=== PATIENT | male | born 1955 | race Caucasian/White ===

== ENCOUNTER 2018-02-27 14:56 | Outpatient (CLI) | payer MEDICARE ==
--- NOTE | 2018-02-27 15:43 | RAD ---
SKULL SERIES 4 VIEWS: HISTORY: Injury to head. FINDINGS: No evidence of skull fracture identified. No osseous abnormality. IMPRESSION: No evidence of skull fracture. POS: [facility]
--- NOTE | 2018-02-27 15:47 | RAD ---
LEFT HAND 3 VIEWS: HISTORY: Injury with pain. FINDINGS: Degenerative changes are seen involving the 1st, 2nd, and 3rd MCP joints with joint narrowing and deg enerative spurring. No fracture, dislocation, or other acute process. IMPRESSION: No acute fracture identified. POS: [facility]
--- NOTE | 2018-02-27 15:49 | RAD ---
CERVICAL SPINE: HISTORY: Injury to neck. FINDINGS: Postop changes are noted with anterior fusion procedure transfixing C5-6. Anterior plate and screws at this level with interbody implant and partial fusion. Degenerative changes are noted with anterior osteophytes at C3 and C4. Disk narrowing at C6-7 with d egenerative spurring. No evidence of acute compression or fracture. Findings are stable when compar ed to a prior cervical spine exam of 2014. On an AP view, there is evidence of a fracture involving the posterolateral right 4th rib. This appe ars to be old but is only viewed in the single projection. IMPRESSION: 1. Postop and degenerative changes of cervical spine without evidence of acute cervical spine fractu re. 2. Evidence of an old right 4th rib fracture. POS: [facility]
== END 2018-02-27 14:57 | disposition home or self-care (01) ==
LOC: SCSRAD 14:56
PROVIDERS: ATTEND Family Medicine
DX: S09.90XA Unspecified injury of head, initial encounter (principal); M47.892 Other spondylosis, cervical region; Z98.890 Other specified postprocedural states; Z87.81 Personal history of (healed) traumatic fracture
CPT/HCPCS: 70260; 72040

== ENCOUNTER 2018-03-08 17:32 | Emergency (ER) | payer MEDICARE ==
[2018-03-08] MEDS ORDERED: diphenhydrAMINE 50 MG/ML VIAL ONE (18:10)
[2018-03-08] MEDS ORDERED: Metoclopramide HCl 10 MG/2 ML VIAL ONE (18:10)
[2018-03-08 18:23] LABS: #Eosinphils 0.2 thou/uL (0.0-0.7); #Lymphocytes 1.6 thou/uL (1.20-3.40); #Monocytes 0.5 thou/uL (0.11-0.59); #Neutrophils 3.5 thou/uL (1.40-6.50); %Basophils 0.5 % (0.0-1.0); %Eosinophils 3.7 % (0.0-10.0); %Lymphocytes 27.4 % (21.0-51.0); %Monocytes 8.3 % (0.0-10.0); %Neutrophils 60.1 % (42.0-75.0); Hemoglobin 14.6 g/dL (14.0-18.0); Mean Corpuscular HGB CONC 34.4 g/dL (32.0-36.0); Mean Corpuscular Hemoglobin 31.7 pg (27.0-31.0); Mean Corpuscular Volume 92.2 fL (78.0-98.0); Mean Platelet Volume 8.5 fL (7.4-10.4); Platelet Count 172 thou/uL (130-400); RBC Distribution Width 11.5 % (11.5-14.5); Red Blood Cell (RBC) Count 4.61 mill/uL (4.70-6.10); White Blood Cell (WBC) Count 5.8 thou/uL (4.8-10.8)
--- NOTE | 2018-03-08 18:38 | CT ---
CT OF THE BRAIN WITHOUT CONTRAST: Date: 03/08/18 COMPARISON: 04/02/10. HISTORY: Pinned between two cows and a pen. Headache. TECHNIQUE: Multiple contiguous axial images were obtained in a CT of the brain without contrast. FINDINGS: The brain is normal in morphology and attenuation without focal lesions or confluent areas of infarct ion. There is no evidence of hydrocephalus, intracranial hemorrhage, or extra-axial fluid collection. The calvarium and overlying soft tissues are unremarkable. The visualized paranasal sinuses and masto id air cells are well aerated. IMPRESSION: No evidence of acute intracranial abnormality. POS: [facility]
[2018-03-08 18:43] LABS: ALT (SGPT) 16 U/L (8-55); AST (SGOT) 18 U/L (5-34); Albumin 4.2 g/dL (3.4-4.8); Alkaline Phosphatase 66 U/L (40-150); Anion Gap 13 mmol/L (10-20); BUN (Urea Nitrogen) 19 mg/dL (8.4-25.7); Bilirubin, Total 0.5 mg/dL (0.2-1.2); Calc. Creatinine Clearance 0 mL/min (70-130); Calcium 9.1 mg/dL (7.8-10.44); Carbon Dioxide 21 mmol/L (23-31); Chloride 105 mmol/L (98-107); Estimated GFR-MDRD 67; Globulin 3.2 g/dL (2.4-3.5); Glucose 124 mg/dL (80-115); Magnesium 2.6 mg/dL (1.6-2.6); Potassium 4.2 mmol/L (3.5-5.1); Protein, Total 7.4 g/dL (5.8-8.1); Sodium 135 mmol/L (136-145)
[2018-03-08 18:46] LABS: Troponin I Less than 0.010 ng/mL (< 0.028)
== END 2018-03-08 19:52 | disposition home or self-care (01) ==
LOC: ERS 17:32
DX: S06.0X0A Concussion without loss of consciousness, initial encounter (principal); I25.10 Atherosclerotic heart disease of native coronary artery without angina pectoris; E78.5 Hyperlipidemia, unspecified; E78.1 Pure hyperglyceridemia; J45.909 Unspecified asthma, uncomplicated; F41.9 Anxiety disorder, unspecified; F32.9 Major depressive disorder, single episode, unspecified; I11.0 Hypertensive heart disease with heart failure; I50.9 Heart failure, unspecified; Z79.899 Other long term (current) drug therapy; Z79.82 Long term (current) use of aspirin; W55.22XA Struck by cow, initial encounter
CPT/HCPCS: 70450; 80053; 82553; 83735; 84484; 85025; 96361; 96374; 96375; J1200; J2765

== ENCOUNTER 2021-01-08 15:59 | Observation (INO) | payer MEDICARE ==
[2021-01-08] MEDS ORDERED: Fentanyl 100 MCG/2 ML VIAL ONE (16:22)
[2021-01-08 16:23] LABS: #Eosinphils 0.2 thou/uL (0.0-0.7); #Lymphocytes 1.2 thou/uL (1.20-3.40); #Monocytes 0.6 thou/uL (0.11-0.59); #Neutrophils 4.1 thou/uL (1.40-6.50); %Basophils 0.7 % (0.0-1.0); %Eosinophils 2.6 % (0.0-10.0); %Lymphocytes 19.6 % (21.0-51.0); %Monocytes 10.1 % (0.0-10.0); Hemoglobin 12.9 g/dL (14.0-18.0); Mean Corpuscular Hemoglobin 31.6 pg (27.0-31.0); Mean Corpuscular Volume 93.1 fL (78.0-98.0); Mean Platelet Volume 8.5 fL (7.4-10.4); Platelet Count 145 thou/uL (130-400); RBC Distribution Width 11.8 % (11.5-14.5); Red Blood Cell (RBC) Count 4.07 mill/uL (4.70-6.10)
[2021-01-08 16:49] LABS: ALT (SGPT) 11 U/L (8-55); AST (SGOT) 11 U/L (5-34); Albumin 3.6 g/dL (3.4-4.8); Alkaline Phosphatase 64 U/L (40-110); Anion Gap 13 mmol/L (10-20); BUN (Urea Nitrogen) 19 mg/dL (8.4-25.7); Bilirubin, Total 0.4 mg/dL (0.2-1.2); Calc. Creatinine Clearance 0 mL/min (70-130); Calcium 8.6 mg/dL (7.8-10.44); Carbon Dioxide 25 mmol/L (23-31); Chloride 104 mmol/L (98-107); Globulin 2.8 g/dL (2.4-3.5); Glucose 104 mg/dL (80-115); Potassium 4.3 mmol/L (3.5-5.1); Protein, Total 6.4 g/dL (5.8-8.1); Sodium 138 mmol/L (136-145)
[2021-01-08] MEDS ORDERED: Nitroglycerin 0.4 MG TAB (25 Tab Bottle) SL PRN (19:31)
[2021-01-08] MEDS ORDERED: Ondansetron PF 4 MG/2 ML Vial IVP PRN (19:31)
[2021-01-08] MEDS ORDERED: Morphine 2 MG/ML VIAL SLOW IVP PRN ×2 (19:48→22:58)
[2021-01-08 19:53] LABS: Troponin I Less than 0.010 ng/mL (< 0.028)
[2021-01-08] MEDS ORDERED: Aspirin Chewable 81 MG TAB PO SCH (20:00)
[2021-01-08] MEDS: Heparin 5,000 UNITS/ML VIAL SC SCH (21:20)
[2021-01-08] MEDS: Nicotine 21 MG PATCH TD SCH (21:20)
[2021-01-08 23:31] LABS: Troponin I Less than 0.010 ng/mL (< 0.028)
[2021-01-08] MEDS: Acetaminophen 325 MG TAB PO PRN (23:31)
[2021-01-09 01:34] LABS: SARS-CoV-2 PCR by NAA Not Detected (NotDetected)
[2021-01-09 04:20] LABS: #Eosinphils 0.2 thou/uL (0.0-0.7); #Lymphocytes 1.2 thou/uL (1.20-3.40); #Monocytes 0.7 thou/uL (0.11-0.59); #Neutrophils 3.8 thou/uL (1.40-6.50); %Basophils 0.3 % (0.0-1.0); %Eosinophils 2.8 % (0.0-10.0); %Lymphocytes 20.4 % (21.0-51.0); %Monocytes 11.3 % (0.0-10.0); %Neutrophils 65.3 % (42.0-75.0); Hemoglobin 12.3 g/dL (14.0-18.0); Mean Corpuscular HGB CONC 33.8 g/dL (32.0-36.0); Mean Corpuscular Hemoglobin 31.4 pg (27.0-31.0); Mean Corpuscular Volume 92.9 fL (78.0-98.0); Mean Platelet Volume 8.7 fL (7.4-10.4); Platelet Count 145 thou/uL (130-400); RBC Distribution Width 11.7 % (11.5-14.5); Red Blood Cell (RBC) Count 3.93 mill/uL (4.70-6.10); White Blood Cell (WBC) Count 5.8 thou/uL (4.8-10.8)
[2021-01-09 04:40] LABS: Anion Gap 13 mmol/L (10-20); BUN (Urea Nitrogen) 22 mg/dL (8.4-25.7); Calc. Creatinine Clearance 68 mL/min (70-130); Calcium 8.8 mg/dL (7.8-10.44); Carbon Dioxide 24 mmol/L (23-31); Cardiac Risk 4.3 (Less than 4.5); Chloride 106 mmol/L (98-107); Cholesterol 175 mg/dl (< 200 Desired); Glucose 97 mg/dL (80-115); HDL Cholesterol 41 mg/dL (>60 Neg Risk); LDL Cholesterol, Calculated 87 mg/dL; Sodium 139 mmol/L (136-145); Triglycerides 237 mg/dL (Less than 150)
[2021-01-09 04:49] LABS: Hemoglobin A1c 5.7 % (4.0-6.0)
[2021-01-09] MEDS ORDERED: Regadenoson 0.4 MG/5 ML SYRINGE ONE (08:47)
[2021-01-09] MEDS ORDERED: Aspirin Chewable 81 MG TAB PO SCH (09:00)
[2021-01-09] MEDS: Heparin 5,000 UNITS/ML VIAL SC SCH ×2 (10:57→16:15)
[2021-01-09] MEDS: Acetaminophen 325 MG TAB PO PRN (13:20)
[2021-01-09 15:51] LABS: Bacteria/HPF None Seen HPF (None Seen); Bilirubin Negative (Negative); Blood, Urine Negative (Negative); Clarity Clear (Clear); Glucose, Urine (Dipstick) Normal (Negative); Ketone, Urine Negative (Negative); Leukocyte Negative Leu/uL (Negative); Nitrite Negative (Negative); Protein, Urine (Dipstick) Negative (Neg-Trace); RBC/HPF 0-3 HPF (0-3); Specific Gravity, Urine 1.011 (1.002-1.036); Squamous Epithelial None Seen HPF (0-3); Urobilinogen Normal mg/dL (Less than 2); WBC/HPF None Seen HPF (0-3)
[2021-01-09] MEDS ORDERED: Nitroglycerin 0.4 MG TAB (25 Tab Bottle) SL PRN (17:38)
[2021-01-09] MEDS ORDERED: Gabapentin 300 MG CAP PO PRN (17:38)
[2021-01-09] MEDS ORDERED: Non-Formulary Item 1 EACH (Prednisone [Prednisone] 10 MG Tablet) PO PRN (17:38)
[2021-01-09] MEDS ORDERED: metroNIDAZOLE 500 MG in Premix Bag 1 BAG IVPB SCH (18:30)
[2021-01-09] MEDS ORDERED: Carvedilol 25 MG TAB PO SCH (20:00)
[2021-01-09] MEDS ORDERED: Icosapent Ethyl 1 GM CAPSULE PO SCH (20:00)
[2021-01-09] MEDS: HYDROcodone/Acetaminophen 5/325 mg Tablet PO SCH (20:16)
[2021-01-09] MEDS: ceFAZolin 1 GM/D5W 1 GM in Premix Bag 1 BAG IVPB SCH (20:16)
[2021-01-09] MEDS: Apixaban 2.5 MG TAB PO SCH (20:17)
[2021-01-09] MEDS: Nicotine 21 MG PATCH TD SCH ×2 (20:17→20:20)
[2021-01-09] MEDS ORDERED: Lisinopril 20 MG TAB PO SCH (21:00)
[2021-01-09] MEDS ORDERED: TICAGRELOR 90 MG TABLET PO SCH (21:00)
[2021-01-09] MEDS ORDERED: CEFAZOLIN 1 GM in Sodium Chloride 0.9% 100 ML IVPB SCH (22:00)
[2021-01-10] MEDS: metroNIDAZOLE 500 MG in Premix Bag 1 BAG IVPB SCH ×2 (02:03→11:06)
[2021-01-10] MEDS: ceFAZolin 1 GM/D5W 1 GM in Premix Bag 1 BAG IVPB SCH ×2 (02:58→12:49)
[2021-01-10] MEDS ORDERED: Carvedilol 25 MG TAB PO SCH (08:00)
[2021-01-10] MEDS ORDERED: Icosapent Ethyl 1 GM CAPSULE PO SCH (08:00)
[2021-01-10] MEDS: Apixaban 2.5 MG TAB PO SCH (08:38)
[2021-01-10] MEDS: HYDROcodone/Acetaminophen 5/325 mg Tablet PO SCH (08:40)
[2021-01-10] MEDS ORDERED: Aspirin 81 mg Enteric Coated Tablet PO SCH (09:00)
[2021-01-10] MEDS ORDERED: Ezetimibe 10 MG TAB PO SCH (09:00)
[2021-01-10] MEDS ORDERED: Enoxaparin Sodium 40 MG/0.4 ML SYRINGE SC SCH (09:00)
[2021-01-10] MEDS ORDERED: LISDEXAMFETAMINE DIMESYLATE 60 MG PO SCH (09:00)
[2021-01-10] MEDS ORDERED: Lisinopril 20 MG TAB PO SCH (09:00)
[2021-01-10] MEDS ORDERED: Torsemide 10 MG TAB PO SCH (09:00)
[2021-01-10] MEDS ORDERED: (Vortioxetine Hydrobromide [Trintellix] 20 MG Tablet) PO SCH (09:00)
[2021-01-10 11:33] LABS: Hemoglobin 13.1 g/dL (14.0-18.0); Platelet Count 161 thou/uL (130-400)
[2021-01-10 17:05] VITALS: BP 116/62; TEMP 97
== END 2021-01-10 16:50 | disposition home or self-care (01) ==
LOC: ERS 15:59 → ERHOLD 19:07 → 2NO 22:13
PROVIDERS: ADMIT Family Medicine; ATTEND Internal Medicine
DX: R07.9 Chest pain, unspecified (principal); I25.2 Old myocardial infarction; K50.90 Crohn's disease, unspecified, without complications; I25.10 Atherosclerotic heart disease of native coronary artery without angina pectoris; I11.0 Hypertensive heart disease with heart failure; I50.22 Chronic systolic (congestive) heart failure; E78.5 Hyperlipidemia, unspecified; J45.20 Mild intermittent asthma, uncomplicated; F17.210 Nicotine dependence, cigarettes, uncomplicated; K57.32 Diverticulitis of large intestine without perforation or abscess without bleeding; Z79.02 Long term (current) use of antithrombotics/antiplatelets; Z79.82 Long term (current) use of aspirin; Z79.899 Other long term (current) drug therapy; Z88.5 Allergy status to narcotic agent; Z95.1 Presence of aortocoronary bypass graft; Z95.5 Presence of coronary angioplasty implant and graft; Z20.822 Contact with and (suspected) exposure to COVID-19
CPT/HCPCS: 71045; 74176; 78452; 80048; 80053; 80061; 81001; 82565; 83036; 83880; 84484 ×2; 85014; 85018; 85025 ×2; 85049; 85379; 93005; 93017; 93306; 94760; 96372 ×2; 96374 ×2; 96375; 96376; 99285; A9500; G0378 ×4; U0003; U0005; 36415; 87635; J0690; J1644; J2785; J3010

== ENCOUNTER 2021-09-20 10:58 | Outpatient (CLI) | payer MEDICARE | END 2021-09-20 10:59 | disposition home or self-care (01) | LOC: BICRAD 10:58 | PROVIDERS: ATTEND Specialist | DX: M47.812 Spondylosis without myelopathy or radiculopathy, cervical region (principal); M43.12 Spondylolisthesis, cervical region; Z98.1 Arthrodesis status; Z98.890 Other specified postprocedural states | CPT/HCPCS: 72050 ==

== ENCOUNTER 2022-02-14 11:40 | Inpatient (IN) | payer MEDICARE ==
[2022-02-14 12:10] LABS: #Basophils 0.1 thou/uL (0.0-0.2); #Eosinphils 0.4 thou/uL (0.0-0.7); #Monocytes 0.4 thou/uL (0.11-0.59); #Neutrophils 5.9 thou/uL (1.40-6.50); %Basophils 0.7 % (0.0-1.0); %Eosinophils 4.5 % (0.0-10.0); %Lymphocytes 13.2 % (21.0-51.0); %Monocytes 5.6 % (0.0-10.0); Mean Corpuscular HGB CONC 33.6 g/dL (32.0-36.0); Mean Corpuscular Hemoglobin 31.8 pg (27.0-31.0); Mean Corpuscular Volume 94.8 fL (78.0-98.0); Platelet Count 176 thou/uL (130-400); RBC Distribution Width 11.2 % (11.5-14.5); White Blood Cell (WBC) Count 7.7 thou/uL (4.8-10.8)
[2022-02-14] MEDS ORDERED: Morphine 10 MG/ML VIAL ONE (12:10)
[2022-02-14] MEDS ORDERED: Iopamidol-M 300 61% 15 ML VIAL ONE (12:12)
[2022-02-14 12:22] LABS: PTT 31.4 sec (22.9-36.1); Prothrombin Time 12.9 sec (12.0-14.7)
[2022-02-14 12:31] LABS: ALT (SGPT) 11 U/L (8-55); AST (SGOT) 16 U/L (5-34); Albumin 3.9 g/dL (3.4-4.8); Alkaline Phosphatase 74 U/L (40-110); Anion Gap 11 mmol/L (10-20); BUN (Urea Nitrogen) 18 mg/dL (8.4-25.7); Bilirubin, Total 0.5 mg/dL (0.2-1.2); Calc. Creatinine Clearance 0 mL/min (70-130); Carbon Dioxide 24 mmol/L (23-31); Chloride 106 mmol/L (98-107); Globulin 2.8 g/dL (2.4-3.5); Glucose 112 mg/dL (80-115); Potassium 4.2 mmol/L (3.5-5.1); Protein, Total 6.7 g/dL (5.8-8.1); Sodium 137 mmol/L (136-145)
[2022-02-14] MEDS ORDERED: fentaNYL Citrate/PF 100 MCG/2 ML SYRINGE ONE (13:09)
[2022-02-14] MEDS ORDERED: Neomycin-Polymyxin 1 ML AMP ONE (13:22)
[2022-02-14] MEDS ORDERED: Bacitracin Zinc Ointment 30 gm TUBE ONE (13:22)
[2022-02-14] MEDS ORDERED: Thrombin 5000 UNITS/5 ML VIAL ONE (13:22)
[2022-02-14] MEDS ORDERED: Bupivacaine PF 0.5% 30 ML VIAL ONE (13:25)
[2022-02-14] MEDS ORDERED: EPINEPHrine 1 MG/ML AMP ONE (13:25)
[2022-02-14] MEDS ORDERED: Midazolam HCl 2 mg/2 ml Vial ONE (15:07)
[2022-02-14] MEDS ORDERED: HYDROmorphone 2 MG/ML VIAL ONE (15:07)
[2022-02-14] MEDS ORDERED: ePHEDrine Sulfate 50 MG/10 ML VIAL ONE (15:08)
[2022-02-14] MEDS ORDERED: SUGAMMADEX SODIUM 200 MG/2 ML VIAL ONE (15:08)
[2022-02-14] MEDS ORDERED: PHENYLEPHRINE-NS 100 MCG/ML 10 ML SYRINGE ONE ×5 (15:08→19:52)
[2022-02-14] MEDS ORDERED: Rocuronium Bromide 50 MG/5 ML VIAL ONE (15:08)
[2022-02-14 15:09] LABS: SARS-CoV-2 NAA Rapid Test Not Detected (NotDetected)
[2022-02-14] MEDS ORDERED: Pantoprazole 40 MG VIAL ONE (15:09)
[2022-02-14] MEDS ORDERED: Famotidine/PF 20 mg/2ml Vial ONE (15:09)
[2022-02-14] MEDS ORDERED: Metoclopramide HCl 10 MG/2 ML VIAL ONE (15:35)
[2022-02-14] MEDS ORDERED: Dexamethasone 20 MG/5 ML VIAL ONE (15:35)
[2022-02-14] MEDS ORDERED: diphenhydrAMINE 50 MG/ML VIAL ONE (15:35)
[2022-02-14] MEDS ORDERED: Ondansetron PF 4 MG/2 ML Vial ONE (15:35)
[2022-02-14] MEDS ORDERED: Rocuronium Bromide 10 MG/ML (10ML VIAL) ONE (15:35)
[2022-02-14] MEDS ORDERED: PROPOFOL 200 MG/20 ML VIAL ONE (15:35)
[2022-02-14] MEDS ORDERED: Lidocaine 1% PF 5 ML VIAL ONE (15:35)
[2022-02-14] MEDS ORDERED: ePHEDrine 50 MG/ML VIAL ONE (15:35)
[2022-02-14] MEDS ORDERED: Phenylephrine 10 MG/ML VIAL ONE (16:51)
[2022-02-14] MEDS ORDERED: Promethazine HCl 25 MG/ML VIAL IM PRN (19:36)
[2022-02-14] MEDS ORDERED: Ondansetron HCl/PF 4 MG/2 ML Vial IVP PRN (19:36)
[2022-02-14] MEDS ORDERED: Promethazine HCl 25 MG/ML VIAL IVPB PRN (19:36)
[2022-02-14] MEDS ORDERED: Norepinephrine 8 MG/0.9% NS 250 ML IVPB SCH (19:49)
[2022-02-14] MEDS: Sodium Chloride 0.9% 1,000 ML IV SCH (19:50)
[2022-02-14] MEDS ORDERED: Prochlorperazine 10 MG/2 ML VIAL IM PRN (19:51)
[2022-02-14] MEDS ORDERED: Acetaminophen/Codeine 30-300mg Tablet PO PRN (19:51)
[2022-02-14] MEDS ORDERED: diphenhydrAMINE 50 MG/ML VIAL IVP PRN (19:51)
[2022-02-14] MEDS ORDERED: Mag-Al 1200 mg/1200 mg/30 ML UDCUP PO PRN (19:51)
[2022-02-14] MEDS ORDERED: Ondansetron PF 4 MG/2 ML Vial IVP PRN (19:51)
[2022-02-14] MEDS ORDERED: Bisacodyl 10 MG SUPP PR PRN (19:51)
[2022-02-14] MEDS ORDERED: Acetaminophen 325 MG TAB PO PRN (19:51)
[2022-02-14] MEDS ORDERED: Norepinephrine 8 MG/0.9% NS 0 ML ONE (19:51)
[2022-02-14] MEDS ORDERED: Milk Of Magnesia 30 ML UDCUP PO PRN (19:51)
[2022-02-14] MEDS ORDERED: Norepinephrine 8 MG/0.9% NS 250 ML ONE (19:52)
[2022-02-14] MEDS ORDERED: hydrALAZINE 20 MG/ML VIAL SLOW IVP PRN (19:54)
[2022-02-14] MEDS ORDERED: Fentanyl 100 MCG/2 ML VIAL ONE (20:43)
[2022-02-14] MEDS: Fentanyl 100 MCG/2 ML VIAL SLOW IVP PRN (22:11)
[2022-02-14] MEDS: CEFAZOLIN 2 GM in Sodium Chloride 0.9% 100 ML IVPB SCH (23:09)
[2022-02-15] MEDS: HYDROcodone/Acetaminophen 7.5/325 mg Tablet PO PRN ×2 (04:09→13:31)
[2022-02-15] MEDS: CEFAZOLIN 2 GM in Sodium Chloride 0.9% 100 ML IVPB SCH ×3 (04:10→20:04)
[2022-02-15 05:04] VITALS: BMI 23.3
[2022-02-15] MEDS: Sodium Chloride 0.9% 1,000 ML IV SCH ×2 (09:17→13:49)
[2022-02-15] MEDS: HYDROcodone/Acetaminophen 10/325 mg Tablet PO PRN ×2 (09:18→17:26)
[2022-02-15 09:53] LABS: EPI 122 sec (67-192)
[2022-02-15 09:54] LABS: Platelet Count 185 thou/uL (130-400)
[2022-02-15 09:55] LABS: ADP 89 sec (39-127); ADP Status Message No Message
[2022-02-15] MEDS: Cyclobenzaprine 10 MG TAB PO PRN (11:33)
[2022-02-15] MEDS: Fentanyl 100 MCG/2 ML VIAL SLOW IVP PRN ×2 (13:54→17:37)
[2022-02-16] MEDS: Fentanyl 100 MCG/2 ML VIAL SLOW IVP PRN (02:36)
[2022-02-16] MEDS: CEFAZOLIN 2 GM in Sodium Chloride 0.9% 100 ML IVPB SCH ×3 (04:28→20:17)
[2022-02-16] MEDS: Sodium Chloride 0.9% 1,000 ML IV SCH ×3 (05:31→21:41)
[2022-02-16 11:31] LABS: #Basophils 0.1 thou/uL (0.0-0.2); #Eosinphils 0.1 thou/uL (0.0-0.7); #Lymphocytes 1.2 thou/uL (1.20-3.40); #Monocytes 0.8 thou/uL (0.11-0.59); #Neutrophils 9.1 thou/uL (1.40-6.50); %Basophils 0.5 % (0.0-1.0); %Eosinophils 0.5 % (0.0-10.0); %Lymphocytes 10.8 % (21.0-51.0); %Monocytes 7.3 % (0.0-10.0); %Neutrophils 81.1 % (42.0-75.0); Hemoglobin 11.9 g/dL (14.0-18.0); Mean Corpuscular HGB CONC 33.6 g/dL (32.0-36.0); Mean Corpuscular Hemoglobin 32.3 pg (27.0-31.0); Mean Platelet Volume 8.5 fL (7.4-10.4); Platelet Count 167 thou/uL (130-400); RBC Distribution Width 11.4 % (11.5-14.5); Red Blood Cell (RBC) Count 3.69 mill/uL (4.70-6.10); White Blood Cell (WBC) Count 11.2 thou/uL (4.8-10.8)
[2022-02-16 11:47] LABS: Anion Gap 12 mmol/L (10-20); BUN (Urea Nitrogen) 16 mg/dL (8.4-25.7); Calc. Creatinine Clearance 74 mL/min (70-130); Calcium 8.8 mg/dL (7.8-10.44); Carbon Dioxide 27 mmol/L (23-31); Chloride 105 mmol/L (98-107); Glucose 113 mg/dL (80-115); Potassium 3.8 mmol/L (3.5-5.1); Sodium 140 mmol/L (136-145)
[2022-02-16] MEDS: HYDROcodone/Acetaminophen 10/325 mg Tablet PO PRN ×2 (16:44→20:13)
[2022-02-16] MEDS: Cyclobenzaprine 10 MG TAB PO PRN (20:13)
[2022-02-17] MEDS: CEFAZOLIN 2 GM in Sodium Chloride 0.9% 100 ML IVPB SCH ×3 (03:37→20:28)
[2022-02-17] MEDS: HYDROcodone/Acetaminophen 10/325 mg Tablet PO PRN ×4 (05:46→20:28)
[2022-02-17] MEDS: Cyclobenzaprine 10 MG TAB PO PRN (20:32)
[2022-02-17] MEDS: Sodium Chloride 0.9% 1,000 ML IV SCH ×2 (20:45→20:46)
[2022-02-18] MEDS: CEFAZOLIN 2 GM in Sodium Chloride 0.9% 100 ML IVPB SCH ×2 (03:37→12:12)
[2022-02-18] MEDS: Sodium Chloride 0.9% 1,000 ML IV SCH (03:38)
[2022-02-18 06:35] LABS: #Eosinphils 0.4 thou/uL (0.0-0.7); #Lymphocytes 1.9 thou/uL (1.20-3.40); #Monocytes 0.9 thou/uL (0.11-0.59); #Neutrophils 4.7 thou/uL (1.40-6.50); %Basophils 0.3 % (0.0-1.0); %Eosinophils 4.5 % (0.0-10.0); %Lymphocytes 24.2 % (21.0-51.0); %Monocytes 11.7 % (0.0-10.0); %Neutrophils 59.3 % (42.0-75.0); Hemoglobin 11.7 g/dL (14.0-18.0); Mean Corpuscular HGB CONC 33.5 g/dL (32.0-36.0); Mean Corpuscular Hemoglobin 32.2 pg (27.0-31.0); Mean Corpuscular Volume 96.1 fL (78.0-98.0); Mean Platelet Volume 8.6 fL (7.4-10.4); Platelet Count 164 thou/uL (130-400); RBC Distribution Width 11.4 % (11.5-14.5); Red Blood Cell (RBC) Count 3.63 mill/uL (4.70-6.10)
[2022-02-18 06:42] LABS: Anion Gap 12 mmol/L (10-20); BUN (Urea Nitrogen) 19 mg/dL (8.4-25.7); Calc. Creatinine Clearance 75 mL/min (70-130); Calcium 9.1 mg/dL (7.8-10.44); Carbon Dioxide 26 mmol/L (23-31); Chloride 105 mmol/L (98-107); Glucose 106 mg/dL (80-115); Potassium 4.1 mmol/L (3.5-5.1); Sodium 139 mmol/L (136-145)
[2022-02-18] MEDS: HYDROcodone/Acetaminophen 10/325 mg Tablet PO PRN (08:23)
[2022-02-18 11:51] VITALS: TEMP 97.8
[2022-02-18 13:21] VITALS: BP 133/80
== END 2022-02-18 16:10 | disposition home health service (06) | DRG 907 ==
LOC: ERS 11:40 → SDC 15:26 → CCU 19:50 → T4-B 02-15 10:33
PROVIDERS: ADMIT Neurological Surgery; ATTEND Internal Medicine
PROC: 01N10ZZ Release Cervical Nerve, Open Approach (ICD-10-PCS; principal; 2022-02-14)
PROC: 01N80ZZ Release Thoracic Nerve, Open Approach (ICD-10-PCS; 2022-02-14)
PROC: 3E033XZ Introduction of Vasopressor into Peripheral Vein, Percutaneous Approach (ICD-10-PCS; 2022-02-14)
DX: G97.61 Postprocedural hematoma of a nervous system organ or structure following a nervous system procedure (principal); R57.8 Other shock; G81.94 Hemiplegia, unspecified affecting left nondominant side; K50.90 Crohn's disease, unspecified, without complications; T80.89XA Other complications following infusion, transfusion and therapeutic injection, initial encounter; Z20.822 Contact with and (suspected) exposure to COVID-19; I25.10 Atherosclerotic heart disease of native coronary artery without angina pectoris; E78.5 Hyperlipidemia, unspecified; E78.00 Pure hypercholesterolemia, unspecified; E78.1 Pure hyperglyceridemia; I11.0 Hypertensive heart disease with heart failure; F41.9 Anxiety disorder, unspecified; F32.A Depression, unspecified; F17.210 Nicotine dependence, cigarettes, uncomplicated; Y84.8 Other medical procedures as the cause of abnormal reaction of the patient, or of later complication, without mention of misadventure at the time of the procedure; I50.9 Heart failure, unspecified; F98.8 Other specified behavioral and emotional disorders with onset usually occurring in childhood and adolescence; N52.9 Male erectile dysfunction, unspecified; I25.2 Old myocardial infarction; Z95.0 Presence of cardiac pacemaker; Z95.5 Presence of coronary angioplasty implant and graft; Z79.82 Long term (current) use of aspirin; Z79.899 Other long term (current) drug therapy; Z88.5 Allergy status to narcotic agent
CPT/HCPCS: 36415; 62305; 70450; 70496; 70498; 72126; 72129; 76000; 80048; 80053; 83880; 84484; 85025; 85576; 85610; 85730; 93005; 93970; 94760; 96374; C9113; J0171; J0690; J1100; J1170; J1200; J2250; J2270; J2370; J2405; J2704; J2765; J3010; J3370; J3490; J7050; Q9967; S0020; S0028; U0002; U0003; U0005

== ENCOUNTER 2022-08-27 06:14 | Day surgery (SDC) | payer MEDICARE ==
[2022-08-23 09:41] VITALS: BMI 21.7
[2022-08-27 07:54] LABS: #Eosinphils 0.1 thou/uL (0.0-0.7); #Lymphocytes 1.2 thou/uL (1.20-3.40); #Monocytes 0.5 thou/uL (0.11-0.59); #Neutrophils 3.3 thou/uL (1.40-6.50); %Basophils 0.7 % (0.0-1.0); %Eosinophils 2.4 % (0.0-10.0); %Lymphocytes 22.9 % (21.0-51.0); %Monocytes 10.4 % (0.0-10.0); %Neutrophils 63.7 % (42.0-75.0); Hemoglobin 13.7 g/dL (14.0-18.0); Mean Corpuscular HGB CONC 33.9 g/dL (32.0-36.0); Mean Corpuscular Hemoglobin 31.8 pg (27.0-31.0); Mean Corpuscular Volume 93.7 fl (78.0-98.0); Mean Platelet Volume 9.2 fL (7.4-10.4); Platelet Count 179 10x3/uL (130-400); RBC Distribution Width 11.5 % (11.5-14.5); White Blood Cell (WBC) Count 5.2 10x3/uL (4.8-10.8)
[2022-08-27 08:12] LABS: Anion Gap 13 mmol/L (10-20); BUN (Urea Nitrogen) 14 mg/dL (8.4-25.7); Calc. Creatinine Clearance 82 mL/min (70-130); Calcium 9.1 mg/dL (7.8-10.44); Carbon Dioxide 25 mmol/L (23-31); Chloride 106 mmol/L (98-107); Estimated GFR 93; Glucose 90 mg/dL (80-115); Potassium 3.7 mmol/L (3.5-5.1); Sodium 140 mmol/L (136-145)
== END 2022-08-27 08:28 | disposition home or self-care (01) ==
LOC: SDC 06:14
PROVIDERS: ATTEND Internal Medicine Gastroenterology
DX: K50.90 Crohn's disease, unspecified, without complications (principal); I51.9 Heart disease, unspecified; I49.3 Ventricular premature depolarization; Z53.09 Procedure and treatment not carried out because of other contraindication; Z79.02 Long term (current) use of antithrombotics/antiplatelets; Z79.82 Long term (current) use of aspirin; Z79.899 Other long term (current) drug therapy; Z88.5 Allergy status to narcotic agent; Z95.0 Presence of cardiac pacemaker
CPT/HCPCS: 80048; 85025; 93005; 93010

== ENCOUNTER 2024-06-17 10:20 | Outpatient (CLI) | payer MEDICARE ==
[2024-06-17 12:36] LABS: #Basophils 0.03 10x3/uL (0.0-0.2); %Basophils 0.5 % (0.0-1.0); %Eosinophils 1.4 % (0.0-10.0); %Lymphocytes 23.7 % (21.0-51.0); %Monocytes 9.9 % (0.0-10.0); %Neutrophils 64.2 % (42.0-75.0); Mean Corpuscular HGB CONC 33.3 g/dL (32.0-36.0); Mean Corpuscular Hemoglobin 30.3 pg (27.0-31.0); Mean Corpuscular Volume 90.9 fL (78.0-98.0); Mean Platelet Volume 11.2 fL (7.4-10.4); Platelet Count 189 10x3/uL (130-400); RBC Distribution Width 13.1 % (11.5-14.5); Red Blood Cell (RBC) Count 4.62 mill/uL (4.70-6.10)
[2024-06-17 13:02] LABS: Anion Gap 12 mmol/L (10-20); BUN (Urea Nitrogen) 21 mg/dL (8.4-25.7); Calc. Creatinine Clearance 0 mL/min (70-130); Calcium 9.3 mg/dL (7.8-10.44); Carbon Dioxide 26 mmol/L (23-31); Chloride 104 mmol/L (98-107); Estimated GFR 82; Glucose 102 mg/dL (83-110); Potassium 4.2 mmol/L (3.5-5.1); Sodium 138 mmol/L (136-145)
== END 2024-06-17 10:21 | disposition home or self-care (01) ==
LOC: LABBT 10:20
PROVIDERS: ATTEND Orthopaedic Surgery Hand Surgery
DX: Z01.818 Encounter for other preprocedural examination (principal); S63.592A Other specified sprain of left wrist, initial encounter; M19.132 Post-traumatic osteoarthritis, left wrist; M87.038 Idiopathic aseptic necrosis of left carpus
CPT/HCPCS: 80048; 85025

== ENCOUNTER 2024-06-21 11:50 | Observation (INO) | payer MEDICARE ==
[2024-06-21] MEDS ORDERED: fentaNYL 50 mcg/mL 1 mL Vial ONE (13:20)
[2024-06-21] MEDS ORDERED: Ropivacaine 0.5% HCl/PF (150 MG/30 ML VIAL) ONE (13:21)
[2024-06-21] MEDS ORDERED: CEFAZOLIN 2 GM VIAL ONE ×2 (13:32→21:43)
[2024-06-21] MEDS ORDERED: PROPOFOL 20 ML ONE (13:33)
[2024-06-21] MEDS ORDERED: fentaNYL PF 100 MCG/2 ML SYRINGE ONE (13:33)
[2024-06-21] MEDS ORDERED: Rocuronium Bromide 10 MG/ML (10ML VIAL) ONE (13:34)
[2024-06-21] MEDS ORDERED: Ketamine In 0.9 % NaCl 50 MG/5 ML SYRINGE ONE (13:34)
[2024-06-21] MEDS ORDERED: Lidocaine 1% PF 5 ML VIAL ONE (13:35)
[2024-06-21] MEDS ORDERED: EPINEPHrine 1 MG/ML VIAL ONE (14:35)
[2024-06-21] MEDS ORDERED: Thrombin 5000 UNITS/5 ML VIAL ONE (14:35)
[2024-06-21] MEDS ORDERED: Bacitracin Zinc Ointment 30 gm TUBE ONE (14:35)
[2024-06-21] MEDS ORDERED: Dexamethasone 20 MG/5 ML VIAL ONE (14:45)
[2024-06-21] MEDS ORDERED: Ondansetron PF 4 MG/2 ML Vial ONE (14:45)
[2024-06-21] MEDS ORDERED: Glycopyrrolate 0.2 MG/ML 5 ML SYRINGE ONE (16:30)
[2024-06-21] MEDS ORDERED: Phenylephrine 40 MG/NS 250 ML 250 ML ONE (16:30)
[2024-06-21] MEDS ORDERED: Vasopressin 20 UNITS/ML VIAL ONE (18:13)
[2024-06-21] MEDS ORDERED: SUGAMMADEX SODIUM 200 MG/2 ML VIAL ONE (18:37)
[2024-06-21] MEDS ORDERED: Acetaminophen 325 MG TAB PO PRN (20:26)
[2024-06-21] MEDS ORDERED: traMADol HCl 50 MG TAB PO PRN (20:26)
[2024-06-21] MEDS ORDERED: TETANUS, DIPHTHERIA TOX,ADULT (TDVAX) 0.5 ML VIAL IM ONE (20:26)
[2024-06-21] MEDS ORDERED: Ondansetron PF 4 MG/2 ML Vial IVP PRN (20:26)
[2024-06-21] MEDS ORDERED: Promethazine HCl 25 MG/ML VIAL IM PRN (20:26)
[2024-06-21] MEDS ORDERED: Communication Order-Pharmacy FS SCH (20:30)
[2024-06-21] MEDS ORDERED: Albuterol 200 PUFF INH INH PRN (20:50)
[2024-06-21] MEDS ORDERED: Loratadine 10 MG TAB PO PRN (20:53)
[2024-06-21] MEDS ORDERED: Gabapentin 300 MG CAP PO PRN (20:53)
[2024-06-21] MEDS ORDERED: Nitroglycerin 0.4 MG TAB (25 Tab Bottle) SL PRN (20:56)
[2024-06-21] MEDS ORDERED: predniSONE 20 MG TAB PO PRN (20:57)
[2024-06-21] MEDS ORDERED: Sodium Chloride 0.9% 100 ML ONE (21:43)
[2024-06-21] MEDS: CEFAZOLIN 2 GM in Sodium Chloride 0.9% 100 ML IVPB SCH (21:48)
[2024-06-21 22:19] VITALS: BMI 20.2
[2024-06-21] MEDS: Aspirin 81 mg Enteric Coated Tablet PO SCH (22:28)
[2024-06-21] MEDS: tiZANidine HCl 4 MG TAB PO PRN (23:59)
[2024-06-21] MEDS: Acetaminophen/Codeine 30-300mg Tablet PO PRN (23:59)
[2024-06-22] MEDS: Morphine 4 MG/ML VIAL SLOW IVP PRN (00:46)
[2024-06-22] MEDS ORDERED: REPATHA 140 MG/ML SC SCH (09:00)
[2024-06-22] MEDS: FLU (Fluad Triv) TS24-25 (65UP)/MF59C/PF 45 MCG/0.5 ML Syringe IM ONE (09:13)
[2024-06-22] MEDS: TETANUS AND DIPHTHERIA TOX/PF 0.5 ML DISP.SYRIN IM SCH (09:13)
[2024-06-22] MEDS: Carvedilol 25 MG TAB PO SCH (09:16)
[2024-06-22] MEDS: Lisinopril 10 MG TAB PO SCH (09:16)
[2024-06-22] MEDS: Ezetimibe 10 MG TAB PO SCH (09:17)
[2024-06-22] MEDS: Tamsulosin HCl 0.4 MG CAP PO SCH (09:17)
[2024-06-22] MEDS: HYDROcodone/Acetaminophen 10/325 mg Tablet PO PRN (09:17)
[2024-06-22] MEDS: Meperidine HCl/PF 25 MG (1 mL) VIAL IM PRN (11:39)
[2024-06-22 16:52] VITALS: BP 118/68; TEMP 98.1
== END 2024-06-22 15:56 | disposition home or self-care (01) ==
LOC: SDC 11:50 → SURG B 20:26
PROVIDERS: ADMIT Orthopaedic Surgery Hand Surgery; ATTEND Orthopaedic Surgery Hand Surgery
PROC: 0RBP4ZZ Excision of Left Wrist Joint, Percutaneous Endoscopic Approach (ICD-10-PCS; principal; 2024-06-21)
PROC: 3E0T3BZ Introduction of Anesthetic Agent into Peripheral Nerves and Plexi, Percutaneous Approach (ICD-10-PCS; 2024-06-21)
PROC: 0PBJ0ZZ Excision of Left Radius, Open Approach (ICD-10-PCS; 2024-06-21)
DX: S63.592A Other specified sprain of left wrist, initial encounter (principal); M87.038 Idiopathic aseptic necrosis of left carpus; M19.132 Post-traumatic osteoarthritis, left wrist; Z88.5 Allergy status to narcotic agent; Z88.8 Allergy status to other drugs, medicaments and biological substances; Z95.810 Presence of automatic (implantable) cardiac defibrillator; Z95.5 Presence of coronary angioplasty implant and graft; Z95.1 Presence of aortocoronary bypass graft; Z79.899 Other long term (current) drug therapy; X58.XXXA Exposure to other specified factors, initial encounter
CPT/HCPCS: 25390; 29845; 64415; 73100; A6258; C1713 ×9; C1889; C1894; J1100; J2175; J2272; J2405; J2704; J2795; J3010; J3490; 88304; J0171